=== PATIENT | male | born 1985 | race Caucasian/White ===

== ENCOUNTER 2022-10-07 08:05 | Outpatient (CLI) | payer BC, SELFPAY ==
--- NOTE | ~2022-10-07 | US_ITS ---
EXAMINATION: US abdomen complete DATE: 10/07/2022 08:43 INDICATION: Liver disease, elevated liver enzymes TECHNIQUE: Multiple grayscale and Doppler ultrasound images of the abdomen were obtained. COMPARISON: None available FINDINGS: The head and body of the pancreas are normal. The pancreatic tail is obscured by bowel gas. There are subtle hyperechoic lesions anteriorly of the liver measuring up to 1.6 cm. The liver is ot herwise normal with normal echogenicity and echotexture. No surface nodularity. Normal hepatopetal fl ow in the main portal vein. The gallbladder is normal with no abnormal wall thickening, pericholecyst ic fluid or stones. The normal common bile duct measures 3 mm. There was no sonographic Yusuf sign. The visualized portions of the aorta and inferior vena cava are normal. The spleen is normal in appearance and measures 10.6 cm. The right kidney measures 13 x 5.5 x 6.6 cm. The left kidney measures 11.6 x 6.0 x 5.5 cm. The kidneys demonstrate normal parenchymal echogenicit y. There is no hydronephrosis. IMPRESSION: 1. Subtle hyperechoic lesions of the liver measuring up to 1.6 cm which are probably benign in the ab sence of known malignancy. Consider further evaluation with MRI without and with contrast. Reviewed, dictated and finalized at location L. TING MANAGER IMPRESSION: 1. Subtle hyperechoic lesions of the liver measuring up to 1.6 cm which are pro bably benign in the absence of known malignancy. Consider further evaluation wi MRI without and with contrast.
== END 2022-10-07 08:06 ==
PROVIDERS: Visit Provider Emergency Medicine
DX: K76.9 Liver disease, unspecified (principal)
CPT/HCPCS: 76700

== ENCOUNTER 2022-10-29 13:40 | Outpatient (CLI) | payer BC, SELFPAY ==
--- NOTE | ~2022-10-29 | MR_ITS ---
MRI of the abdomen: Clinical indication: Abdominal pain. Technique: Coronal SSFSE ARC, WATER:coronal LAVA-FLEX, Coronal 2D FIESTA FatSat, Axial SSFSE BH ARC, Axial 3D DualEcho BH, Axial SSFSE-IR, Axial DWI b=500, Axial 2D FIESTA FatSat, pre and dynamic postco ntrast Axial LAVA ARC, postcontrast Coronal In and Opposed phase LAVA FLEX. Following intravenous adm inistration of 15 cc MultiHance gadolinium, T1-weighted fat-sat imaging was performed in the axial pl ane. COMPARISON: Ultrasound dated 10/07/2022 Findings: Gallbladder is unremarkable. The common bile duct is nondilated. No filling defects are see n within the CBD. No evidence of intrahepatic biliary ductal dilatation. The pancreatic duct is lisbet l in size. Liver, spleen, pancreas, adrenals, kidneys appear normal. The aorta and the paraaortic regions appear normal. No abnormal postcontrast enhancement identified. Impression: Unremarkable exam. No focal hepatic abnormality seen. No MR imaging correlate for the hyperechoic are a in the liver seen on prior ultrasound. Reviewed, dictated and finalized at location M. TOR SWEEPER DRIVER Impression: Unremarkable exam. No focal hepatic abnormality seen. No MR imaging correlate f or the hyperechoic area in the liver seen on prior ultrasound.
== END 2022-10-29 13:41 ==
LOC: MICIMG 13:42
PROVIDERS: PCP Emergency Medicine; Visit Provider Emergency Medicine
DX: K76.89 Other specified diseases of liver (principal)
CPT/HCPCS: 74183; A9577

== ENCOUNTER → 2023-07-01 08:23 | Outpatient (CLI) | payer BC, SELFPAY ==
--- NOTE | ~2023-07-01 | MR_ITS ---
MRI of the lumbar spine Clinical History: Spondylosis Technique: Axial T2-weighted images, and sagittal T1-weighted, T2-weighted, and and T2 fat-sat images were acquired. Findings: There is no fracture or subluxation of lumbar spine. Vertebral bodies maintain normal heigh t and alignment. No bone marrow signal abnormality seen. At L1-L2 and L2-L3, L3-L4, there is no disc bulge or herniation. No spinal canal stenosis or neural f oraminal narrowing at these levels. At L4-L5, there is mild diffuse disc bulge. No spinal canal stenosis. There is minimal bilateral neur al foraminal narrowing. At L5-S1, there is minimal disc bulge. No spinal canal stenosis or neural foraminal narrowing. Paravertebral soft tissues are unremarkable. Impression: Mild degenerative spondylosis at L4-L5, as above. Reviewed, dictated and finalized at [facility]. UE MAKER Impression: Mild degenerative spondylosis at L4-L5, as above.
== END ==
PROVIDERS: PCP Emergency Medicine; Visit Provider Emergency Medicine
DX: M47.896 Other spondylosis, lumbar region (principal)
CPT/HCPCS: 72148

== ENCOUNTER 2024-02-13 08:02 | Outpatient (CLI) | payer BC, SELFPAY ==
--- NOTE | ~2024-02-13 | US_ITS ---
EXAMINATION: US abdomen complete DATE: 02/13/2024 08:53 INDICATION: Upper abdominal pain. TECHNIQUE: Multiple grayscale and Doppler ultrasound images of the abdomen were obtained. COMPARISON: Abdomen ultrasound 10/07/2022 FINDINGS: The visualized portions of the head, body, and tail of the pancreas are normal. The liver i s normal without focal lesion. The gallbladder is normal in size. No gallstones or gallbladder wall t hickening. There is no sonographic Yusuf's sign. The common duct is normal and measures 4 mm. The sp sravani is normal in size. The kidneys are normal in size. The inferior vena cava is normal. Abdominal a jaylon is normal in caliber. IMPRESSION: 1. Normal complete abdomen ultrasound. Reviewed, dictated and finalized at location E.
== END 2024-02-13 08:03 | disposition home or self-care (01) ==
PROVIDERS: PCP Emergency Medicine; Visit Provider Emergency Medicine
DX: R10.10 Upper abdominal pain, unspecified (principal)
CPT/HCPCS: 76700